=== PATIENT | female | born 1950 | race African-American/Black ===

== ENCOUNTER → 2021-08-16 08:59 | Outpatient (BNVA) | payer MEDICARE, OTHER, SELFPAY | PROVIDERS: PCP Internal Medicine; Visit Provider Nurse Practitioner Family | DX: G43.109 Migraine with aura, not intractable, without status migrainosus (principal); M54.2 Cervicalgia | CPT/HCPCS: 99212 ==

== ENCOUNTER → 2021-11-17 08:57 | Outpatient (BNVA) | payer MEDICARE, OTHER, SELFPAY | PROVIDERS: PCP Internal Medicine; Visit Provider Psychiatry & Neurology Neurology | DX: G43.109 Migraine with aura, not intractable, without status migrainosus (principal); M54.2 Cervicalgia | CPT/HCPCS: 99212 ==

== ENCOUNTER → 2022-02-04 09:07 | Outpatient (BNVA) | payer MEDICARE, OTHER, SELFPAY | PROVIDERS: PCP Internal Medicine; Visit Provider Nurse Practitioner Family | DX: G43.109 Migraine with aura, not intractable, without status migrainosus (principal); M54.2 Cervicalgia | CPT/HCPCS: 99212 ==

== ENCOUNTER → 2022-05-16 08:52 | Outpatient (BNVA) | payer MEDICARE, OTHER, SELFPAY | PROVIDERS: PCP Internal Medicine; Visit Provider Nurse Practitioner Family | DX: G43.109 Migraine with aura, not intractable, without status migrainosus (principal); M54.2 Cervicalgia | CPT/HCPCS: 99212 ==

== ENCOUNTER 2023-02-28 09:02 | Outpatient (AMB) | payer MEDICARE, OTHER, SELFPAY ==
--- NOTE | 2023-02-28 09:15 | A.OFFVIS_ITS ---
Intake Vital Signs 02/28/23 09:21 Weight 172 lb 4 oz BP 122/82 Blood Pressure Location Lt brachial Position Sitting Pulse 78 Pulse Source Pulse Oximeter Pulse Oximetry (%) 98 Oxygen Delivery Method Room Air Intake Visit Reasons: follow up ROLON - LVM Intake Note: F/U Headaches,wakes up in AM with dull pain in the back of head, but nothing bad. Sql Ssrs Ssis Developer Required: No Allergies acetaminophen [From Percocet] Allergy (Mild, Verified 02/28/23 09:17) Rash amoxicillin [From Augmentin] Allergy (Mild, Verified 02/28/23 09:17) Rash clavulanic acid [From Augmentin] Allergy (Mild, Verified 02/28/23 09:17) Rash oxycodone [From Percocet] Allergy (Mild, Verified 02/28/23 09:17) Rash Medication List - Last Reconciled 02/28/23 by PATEL Stone amitriptyline 10 mg PO BEDTIME 90 days atorvastatin 10 mg PO DAILY carvedilol 25 mg PO BID [id number]-tenof alafen [phone] mg (Genvoya) 1 tab PO DAILY magnesium oxide 400 mg PO BEDTIME 90 days omeprazole 20 mg PO DAILY ramipril mg PO DAILY riboflavin (vitamin B2) (Vitamin B-2) 200 mg (2 x 100 mg) PO BID 90 days triamterene-hydrochlorothiazid 37.5-25 mg 1 cap PO DAILY HPI HPI Comments History of Present Illness Details 72-yr-old female presents for f/u visit. Pt denies any significant interval medical changes. Pt reports her headaches are much better. Rarely has a bothersome headache where hse needs to take Advil. Her neck is rarely bothersome. Doing PT exercises at home. She has stopped Mag and B2- and feels ok off of them. Pt is compliant w/ Amitriptyline- w/o adverse effect. She does wonder if there are any specific foods to prevent demnetia. ? States she may occassionally forget what she was just thinking or was about to do. Notes this has always happened from time to time- just now that she is older it can make her worry about her risk for dementia. [facility], [facility] Medical History Cardiomyopathy HLD (hyperlipidemia) HTN (hypertension) Neuropathy Surgical History H/O shoulder surgery H/O: hysterectomy History of carpal tunnel release History of cataract surgery Hx of hernia repair Hx of knee surgery Family History Sister Breast cancer Maternal Aunt Breast cancer Social History Alcohol intake: never Patient Tobacco Use Status: Never used Tobacco Review of Systems Const All systems reviewed & are unremarkable except as noted in HPI and below Physical Exam Vital Signs: Last Vital Signs Pulse 78 02/28/23 09:21 BP 122/82 02/28/23 09:21 Pulse Ox 98 02/28/23 09:21 Oxygen Delivery Method Room Air 02/28/23 09:21 Const General: cooperative and no acute distress Orientation/consciousness: patient oriented x3 HEENT Head: Yes normocephalic Resp Effort & Inspection: normal respiratory effort and able to speak in complete sentences Neuro General: patient oriented x3, gait normal and CN's II-XI intact bilaterally Cognition (Neuro): normal cognition Motor exam (neuro): 5/5 motor strength present throughout Psych Appearance: grossly normal Mental Status: mental status grossly normal Speech and movement: Normal speech and movement present Affect: normal affect Attitude: cooperative Thought process: Normal thought process present Thought content: Normal thought content present Insight: Good insight present (Psych) Judgement: Good judgement present (Psych) Assessment & Plan Assessment & Plan (1) Migraine with aura: Code(s): G43.109 - Migraine with aura, not intractable, without status migrainosus (2) Cervicalgia: Code(s): M54.2 - Cervicalgia Plan For migraine w/ aura prevention: Continue Amitriptyline 10mg qhs. May hold Riboflavin 200mg bid- resume if headaches worsen May hold Magnesium 400mg qhs- resume if headaches worsen Previous trials- Topiramate- failed. ? For acute migraine w/ aura tx: Advil as needed. Contraindications- gepants d/t antiviral tx, triptans d/t h/o cardiomyopathy, HTN, HLD. Lasmiditan- previously denied by insurance. ? For cervicalgia: Resume Mag if neck pain worsens. Continue PT exercises For cognition: Pt advised there is no specific diet to prevent dementia- however encouraged her to eat a healthy well-rounded diet w/ lots of fruits and vegetables 9especially colorful varieties). Encouraged pt to continue to engage in regular social and cognitively stimulating activities, as well as regular physical activity. f/u in 6 months or sooner prn Coding Level of Care Code Est Pt Level 4 (57309) Diagnoses Migraine with aura G43.109 Cervicalgia M54.2
[2023-02-28 09:21] VITALS: BP 122/82; PULSE 78; O2SAT 98
== END 2023-02-28 09:43 | disposition home or self-care (01) ==
PROVIDERS: Visit Provider Nurse Practitioner Family
DX: G43.109 Migraine with aura, not intractable, without status migrainosus (principal); M54.2 Cervicalgia
CPT/HCPCS: 99214

== ENCOUNTER → 2023-02-28 09:02 | Outpatient (BNVA) | payer MEDICARE, OTHER, SELFPAY | PROVIDERS: Visit Provider Nurse Practitioner Family | DX: G43.109 Migraine with aura, not intractable, without status migrainosus (principal); M54.2 Cervicalgia | CPT/HCPCS: 99212 ==

== ENCOUNTER 2023-11-17 08:57 | Outpatient (AMB) | payer MEDICARE, OTHER, SELFPAY ==
--- NOTE | 2023-11-17 09:00 | A.OFFVIS_ITS ---
Vital Signs 11/17/23 09:06 Weight 170 lb 6 oz BP 144/82 H Blood Pressure Location Rt brachial Position Sitting Pulse 82 Pulse Source Pulse Oximeter Pulse Oximetry (%) 99 Intake Visit Reasons: 6m follow up ROLON-confirmed Intake Note: Patient presents for 6 month follow up. patient had one episode of headache with aura but went away quick.hasn't had a migraine in a long time Allergies acetaminophen [From Percocet] Allergy (Mild, Verified 11/17/23 09:06) Rash amoxicillin [From Augmentin] Allergy (Mild, Verified 11/17/23 09:06) Rash clavulanic acid [From Augmentin] Allergy (Mild, Verified 11/17/23 09:06) Rash oxycodone [From Percocet] Allergy (Mild, Verified 11/17/23 09:06) Rash Medication List - Last Reconciled 11/17/23 by PATEL Stone amitriptyline 10 mg PO BEDTIME 90 days atorvastatin 10 mg PO DAILY carvedilol 25 mg PO BID [id number] alafen [phone] mg (Genvoya) 1 tab PO DAILY magnesium oxide 400 mg PO BEDTIME 90 days meloxicam 7.5 mg PO DAILY omeprazole 20 mg PO DAILY ramipril mg PO DAILY riboflavin (vitamin B2) (Vitamin B-2) 200 mg (2 x 100 mg) PO BID 90 days triamterene-hydrochlorothiazid 37.5-25 mg 1 cap PO DAILY HPI Comments Details: 73-yr-old female presents for f/u visit. Pt denies any significant interval medical changes. Pt reports she had a brief 10 minute dull headache and visual aura about 2 weeks ago. This was her typical aura. Has not had any since. She thinks maybe this was d/t stress r/t her friend being sick. Neck is tight. Non-radiating neck pain. Denies arm weakness. She ran out of her [employer] and [employer]. She has just started PT again for her knee pain and neck pain- from [facility]. Using Tylenol prn- as she is on Meloxicam. [facility] Medical History Cardiomyopathy HLD (hyperlipidemia) HTN (hypertension) Neuropathy Surgical History H/O shoulder surgery H/O: hysterectomy History of carpal tunnel release History of cataract surgery Hx of hernia repair Hx of knee surgery Family History Sister Breast cancer Maternal Aunt Breast cancer Social History Alcohol intake: never Patient Tobacco Use Status: Never used Tobacco Physical Exam Vital Signs: Last Vital Signs Pulse 82 11/17/23 09:06 BP 144/82 H 11/17/23 09:06 Pulse Ox 99 11/17/23 09:06 Const General: cooperative and no acute distress Orientation/consciousness: patient oriented x3 Resp Effort & Inspection: normal respiratory effort and able to speak in complete sentences Neuro Other: Bilateral posterior cervical tightness. Negative Spurling. General: patient oriented x3 and deep tendon reflexes 2+ bilaterally Cranial nerves: Yes CN's II-XII intact bilaterally Cognition (Neuro): normal cognition Gait exam (Neuro): Normal gait present Motor exam (neuro): 5/5 motor strength present throughout Psych Appearance: grossly normal Mental Status: mental status grossly normal Speech and movement: Normal speech and movement present Affect: normal affect Attitude: cooperative Assessment & Plan Assessment & Plan (1) Migraine with aura: Code(s): G43.109 - Migraine with aura, not intractable, without status migrainosus Category: Medical (2) Cervicalgia: Code(s): M54.2 - Cervicalgia Category: Medical Plan For migraine w/ aura prevention: Continue Amitriptyline 10mg qhs. Resume Riboflavin 200mg bid. Resume Magnesium 400mg qhs.n Previous trials- Topiramate- failed. ? For acute migraine w/ aura tx: Tylenol as needed. Contraindications- gepants d/t antiviral tx, triptans d/t h/o cardiomyopathy, HTN, HLD. Lasmiditan- previously denied by insurance. ? For cervicalgia: Resume Mag Ox 400mg qhs. Concur w/ PT. ? For cognition: Continue to engage in regular social and cognitively stimulating activities, as well as regular physical activity. ? f/u in 12 months or sooner prn Medications: Refilled riboflavin (vitamin B2) (Vitamin B-2) 200 mg (2 x 100 mg) PO BID 90 days 360 tabs 3RF magnesium oxide may hold for loose stools 400 mg PO BEDTIME 90 days 90 tabs 3RF amitriptyline 10 mg PO BEDTIME 90 days 90 tabs 3RF Coding Level of Care Code Est Pt Level 4 (62898) Diagnoses Migraine with aura G43.109 Cervicalgia M54.2
[2023-11-17 09:06] VITALS: BP 144/82; PULSE 82; O2SAT 99
== END 2023-11-17 09:36 | disposition home or self-care (01) ==
PROVIDERS: PCP Internal Medicine; Visit Provider Nurse Practitioner Family
DX: G43.109 Migraine with aura, not intractable, without status migrainosus (principal); M54.2 Cervicalgia
CPT/HCPCS: 99214

== ENCOUNTER → 2023-11-17 08:57 | Outpatient (BNVA) | payer MEDICARE, OTHER, SELFPAY | PROVIDERS: PCP Internal Medicine; Visit Provider Nurse Practitioner Family | DX: G43.109 Migraine with aura, not intractable, without status migrainosus (principal); M54.2 Cervicalgia; Z79.899 Other long term (current) drug therapy | CPT/HCPCS: 99212 ==

== ENCOUNTER 2025-03-24 08:33 | Outpatient (AMB) | payer MEDICARE, OTHER, SELFPAY ==
--- NOTE | 2025-03-24 08:34 | A.OFFVIS_ITS ---
Vital Signs 03/24/25 08:58 Weight 172 lb BP 140/80 H Blood Pressure Location Rt brachial Position Sitting Pulse 62 Pulse Source Pulse Oximeter Pulse Oximetry (%) 96 Oxygen Delivery Method Room Air Intake Visit Reasons: Follow up Civil Litigation Attorney Required: No Accompanied by: Self / Same As Patient Allergies acetaminophen (From Percocet) Allergy (Mild, Verified 03/24/25 08:37) Rash amoxicillin (From Augmentin) Allergy (Mild, Verified 03/24/25 08:37) Rash clavulanic acid (From Augmentin) Allergy (Mild, Verified 03/24/25 08:37) Rash oxycodone (From Percocet) Allergy (Mild, Verified 03/24/25 08:37) Rash Medication List - Last Reconciled 03/24/25 by PATEL Stone amitriptyline 12.5 mg (1/2 x 25 mg) PO BEDTIME 90 days amitriptyline 10 mg PO BEDTIME 90 days Held on 09/15/24. Instructions: Supply shortage atorvastatin 10 mg PO DAILY carvedilol 25 mg PO BID [id number]-huy-bugps-tenof alafen [phone] mg (Genvoya) 1 tab PO DAILY magnesium oxide 400 mg PO BEDTIME 90 days meloxicam 7.5 mg PO DAILY omeprazole 20 mg PO DAILY ramipril mg PO DAILY riboflavin (vitamin B2) (Vitamin B-2) 200 mg (2 x 100 mg) PO BID 90 days triamterene-hydrochlorothiazid 37.5-25 mg 1 cap PO DAILY HPI Comments Details: 74-yr-old female presents for f/u visit of migraine with aura and cervicalgia. The patient denies any significant medical changes in the interval. Pt reports she has an occasional dull headache a/w visual aura. Headache is characterized by bilateral eye discomfort, with the eyes feeling puffy but not actually swollen. It is accompanied by occipital dull pain, associated with visual aura, photophobia, osmophobia, and mild activity intolerance. Her visual aura starts as everything looks bright, and then has squiggly lines x's up to 30 minutes. She reports she is up-to-date with her eye exams, and has 1 scheduled in the near future. Reports her neck is feeling better since doing PT. She has not resumed B2 or Mag, but is compliant with amitriptyline. Using Tylenol prn- as she is on Meloxicam. [facility] Medical History Cardiomyopathy HLD (hyperlipidemia) HTN (hypertension) Neuropathy Surgical History History of cataract surgery History of carpal tunnel release H/O: hysterectomy Hx of hernia repair H/O shoulder surgery Hx of knee surgery Family History Sister Breast cancer Maternal Aunt Breast cancer Social History Alcohol intake: never Patient Tobacco Use Status: Never used Tobacco Physical Exam Vital Signs: Last Vital Signs Pulse 62 03/24/25 08:58 BP 140/80 H 03/24/25 08:58 Pulse Ox 96 03/24/25 08:58 Oxygen Delivery Method Room Air 03/24/25 08:58 Const General: cooperative and no acute distress Orientation/consciousness: patient oriented x3 Resp Effort & Inspection: normal respiratory effort and able to speak in complete sentences Neuro Other: bilateral posterior cervical muscle tightness w/o tenderness General: patient oriented x3 Cranial nerves: Yes CN's II-XII intact bilaterally Cognition (Neuro): normal cognition Gait exam (Neuro): Normal gait present Motor exam (neuro): 5/5 motor strength present throughout Psych Appearance: grossly normal Mental Status: mental status grossly normal Speech and movement: Normal speech and movement present Affect: normal affect Attitude: cooperative Assessment & Plan Assessment & Plan (1) Migraine with aura: Code(s): G43.109 - Migraine with aura, not intractable, without status migrainosus Category: Medical Qualifiers: Status migrainosus presence: without status migrainosus Intractability: not intractable Qualified Code(s): G43.109 - Migraine with aura, not intractable, without status migrainosus (2) Cervicalgia: Code(s): M54.2 - Cervicalgia Category: Medical Plan For migraine w/ aura prevention: Continue Amitriptyline 12.5 mg qhs. Resume Riboflavin 200mg bid. Resume Magnesium 400mg qhs.n Previous trials- Topiramate- failed. ? For acute migraine w/ aura tx: Tylenol as needed. Contraindications- gepants d/t antiviral tx, triptans d/t h/o cardiomyopathy, HTN, HLD. Lasmiditan- previously denied by insurance. ? For cervicalgia: Resume Mag Ox 400mg qhs. Concur w/ PT. ? For cognition: Continue to engage in regular social and cognitively stimulating activities, as well as regular physical activity. ? f/u in 6-12 months or sooner prn Medications: Changed From amitriptyline 12.5 mg (1/2 x 25 mg) PO BEDTIME 30 days 15 tabs 1RF To amitriptyline 12.5 mg (1/2 x 25 mg) PO BEDTIME 45 tabs 3RF 90 days Refilled riboflavin (vitamin B2) (Vitamin B-2) 200 mg (2 x 100 mg) PO BID 360 tabs 3RF 90 days magnesium oxide may hold for loose stools 400 mg PO BEDTIME 90 tabs 3RF 90 days Coding Level of Care Code Est Pt Level 4 (25047) Diagnoses Migraine with aura and without status migrainosus, not intractable G43.109 Status migrainosus presence: without status migrainosus Intractability: not intractable Cervicalgia M54.2
[2025-03-24 08:58] VITALS: BP 140/80; PULSE 62; O2SAT 96
--- OUTSIDE RECORDS SUMMARY | 2025-03-24 09:42 | XMS_ITS | Clinical Summary ---
Author Organization [facility] Address [address] [place] [address] Phone Care Team Providers Care Key Punch Operator Name Role Phone Wilber Del Valle MD Primary Care Provider [phone] Allergies Active Allergy Reactions Criticality Noted Date Comments Amoxicillin-Pot Clavulanate Rash 06/10/20 24 Oxycodone-Acetaminophen Rash 06/10/2024 Medications carvediloL (COREG) 25 mg tablet Take by mouth 2 (two) times a day with meals. Active ramipriL (ALTACE) 10 mg capsule Take 1 capsule (10 mg total) by mouth 1 (one) time each day. Active triamterene-hydr oCHLOROthiazide (MAXZIDE-25) 37.5-25 mg per tablet Take 1 tablet by mouth 1 (one) time each day. Active atorvastatin (LIPITOR) 10 mg tablet Take 1 tablet (10 mg total) by mouth at bedtime. Active elvitegravir-cob icistat-emtricit abine-tenofovir alafenamide (GENVOYA) [phone] mg per tablet Take 1 tablet by mouth 1 (one) time each day. Take with food. Active Surgical History Surgery Date Site/Laterality Comments US RIGHT BREAST BIOSPY 1 LES ION WITH CORE ROTATIONAL DEVICE 07/10/2014 - 07/09/2015 Right Family History Medical History Relation Name Comments Breast cancer Mother's Sister Breast cancer Sister Relation Name Status Comments Mother's Sister Alive Sister Social History Tobacco Use Types Packs/Day Years Used Date Smoking Tobacco: Never Assessed Comments No Sex and Gender Information Value Date Recorded Sex Assigned at Not on file Legal Sex Female 7:39 PM EST Gender Identity Not on file Sexual Orientation Not on file Obstetrics History Para Term AB IAB SAB Ectopic Multiple Livin g Live Births 1 Last Filed Vital Signs Vital Sign Reading Time Taken Comments Blood Pressure 116/68 06/10/2024 4:31 PM EST Pulse 86 06/10/2024 4:31 PM EST Temperature 36.5 C (97.7 F) 06/10/2024 4:31 PM EST Respiratory Rate - - Oxygen Saturation 98% 06/10/2024 4:31 PM EST Inhaled Oxygen Concentration - - Weight 78 kg (172 lb) 05/21/2024 9:22 AM EST Height 165.1 cm (5' 5 ) 05/21/2024 9:22 AM EST Body Mass Index 28.62 05/21/2024 9:22 AM EST Plan of Treatment Upcoming Encounters Date Type Department Care Team (Late st Contact Info) Description 05/23/2025 9:00 AM EST [facility]ointment [facility] [address] [address] Health Maintenance Due Date Last Done Comments DTaP,Tdap,and Td Vaccines (1 - Tdap) 1969 Zoster Vaccines (2 of 3) 06/21/2017 04/26/2017 Cholesterol Screening (Lipid Panel) 06/11/2022 Falls Risk Assessment 06/11/2022 Hepatitis C Screening 06/11/2022 Medicare Annual Wellness Visit 06/11/2022 Social Influencers of Health Screening 06/11/2022 Hypertension/CHF/CAD Annual BMP Blood Test 05/21/2024 Depression Screening 07/10/2024 COVID-19 Vaccine ( season) 2025 06/09/2022, 08/29/2020, 08/08/2020 Influenza Vaccine (#1) 2025 4, 05/18/2023, 04/11/2016 RSV Immunization Adult Patients (1 - 1-dose 75+ series) 2025 Breast Cancer Screening 05/21/2026 05/21/20 24, 05/17/2023, 05/09/2022, Additional history exists Osteoporosis Screening (Bone Density Screening) 04/03/2028 04/03/2018 Colorectal Cancer Screening: Colonoscopy 10/04/2034 10/04/2024 Pneumococcal Vaccine: 50+ Years Completed 05/09/2023, 07/11/2016 HIB Vaccines Aged Out No longer eligi ble based on patient's age to complete this topic HPV Vaccines Aged Out No longer eligi ble based on patient's age to complete this topic Hepatitis A Vaccines Aged Out No long er eligible based on patient's age to complete this topic Hepatitis B Vaccines Aged Out No long er eligible based on patient's age to complete this topic IPV Vaccines Aged Out No longer eligi ble based on patient's age to complete this topic MMR Vaccines Aged Out No longer eligi ble based on patient's age to complete this topic Meningococcal ACWY Vaccine Aged Out N o longer eligible based on patient's age to complete this topic Meningococcal B Vaccine Aged Out No l onger eligible based on patient's age to complete this topic RSV Immunization Patients Under 20 months Aged Out No longer eligible based on patient's age to complete this topic Varicella Vaccines Aged Out No longer eligible based on patient's age to complete this topic Procedures Procedure Name Priority Date/Time Associated Diagnosis Comments EXTERNAL COLONOSCOPY REPORT Routine 10/04/2024 8:21 AM EDT MG MAMMO DIGITAL SCREENING W ELMER BILAT Routine 05/21/2024 9:44 AM EST Visit for screening mammogram ANNI DEXA AXIAL SKELETON Routine 04/03/2018 11:05 AM EDT Other specified disorders of bone density and structure, unspecified site from Last 3 Months or Most Recently Relevant to Health Maintenance Results * External Colonoscopy Report (10/04/2024 8:21 AM EDT) Anatomical Region Laterality Modality Endoscopy us Historical Provider GI~PROCEDURE ORDERABLES F inal Result * MG Mammo Digital Screening w Elmer bilat (05/21/2024 9:44 AM EST) Anatomical Region Laterality Modality Breast Bilateral Mammography 05/21/2024 10:3 0 AM EST Impressions 05/21/2024 10:34 AM EST No mammographic evidence of malignancy. A negative mammogram in the presence of a clinically suspicious palpable abnormality does not preclude the possibility of malignancy or alter the indications for biopsy. PQRI CPT II 3342F Code 03741, 23268 PQRI 225 CPT II 7025F TISSUE DENSITY: There are scattered areas of fibroglandular density. (BI-RADS category B) IMPRESSION: Benign. BI-RADS CATEGORY: 2 - BENIGN RECOMMENDATION: Screening bilateral mammogram is recommended in 1 year. Mammo Location: [facility], [facility], [address] [place] [id number] -------- FINAL REPORT -------- Dictated By: Martin Barker Dictated Date: 05/21/2024 10:30 ET Assigned Physician: Martin Barker Reviewed and Electronically Signed By: Martin Barker Signed Date: 05/21/2024 10:34 ET Workstation ID: [id number] Transcribed By: Self Edit Transcribed Date: 05/21/2024 10:30 ET Narrative 05/21/2024 10:34 AM EST CLINICAL: The patient is a 73 years Female presenting for routine screening mammography. The patient has undergone previous bilateral breast biopsies, pathology benign. The patient has a family history of breast cancer involving her sister at age 30. COMPARISON: Multiple prior studies most recently 05/17/2023 and most remotely 10/05/2016. TECHNIQUE: Full-field digital mammography of the breasts bilaterally consisting of tomosynthesis in MLO and CC projection is performed in the [employer] 2000-D unit. Computer aided detection utilizing the iCAD system was utilized. FINDINGS: The breasts are again seen to be composed of a combination of fatty and fibroglandular elements, as also seen on prior studies. A tissue marker is again seen anteriorly in the right breast. Extensive vascular calcifications are present. There is no suspicious cluster of microcalcifications, mass, or area of architectural distortion. There is no skin thickening or nipple retraction. Procedure Note Martin Barker MD - 05/21/2024 CLINICAL: The patient is a 73 years Female presenting for routinescreening mammography. The patient has undergone previous bilateralbreast biopsies, pathology benign. The patient has a family history ofbreast cancer involving her sister at age 30. COMPARISON: Multiple prior studies most recently 05/17/2023 and mostremotely 10/05/2016. TECHNIQUE: Full-field digital mammography of the breasts bilaterallyconsisting of tomosynthesis in MLO and CC projection is performed in the[employer] 2000-D unit. Computer aided detection utilizing the Amartusystem was utilized. FINDINGS: The breasts are again seen to be composed of a combination offatty and fibroglandular elements, as also seen on prior studies. Atissue marker is again seen anteriorly in the right breast. Extensivevascular calcifications are present. There is no suspicious cluster ofmicrocalcifications, mass, or area of architectural distortion. There isno skin thickening or nipple retraction. IMPRESSION: No mammographic evidence of malignancy. A negative mammogram in the presence of a clinically suspicious palpableabnormality does not preclude the possibility of malignancy or alter theindications for biopsy. PQRI CPT II 3342F Code 73144, 70575 PQRI 225 CPT II 7025F TISSUE DENSITY: There are scattered areas of fibroglandular density.(BI-RADS category B) IMPRESSION: Benign. BI-RADS CATEGORY: 2 - BENIGN RECOMMENDATION: Screening bilateral mammogram is recommended in 1 year. Mammo Location: [facility], [facility], [address] [place] [id number] -------- FINAL REPORT -------- Dictated By: Martin Barker Dictated Date: 05/21/2024 10:30 ET Assigned Physician: Martin Barker Reviewed and Electronically Signed By: Martin Barker Signed Date: 05/21/2024 10:34 ET Workstation ID: [id number] Transcribed By: Self Edit Transcribed Date: 05/21/2024 10:30 ET Wilber Del Valle MD IMBenita BI PROCEDURES Final Result * ANNI DEXA AXIAL SKELETON (04/03/2018 11:05 AM EDT) Anatomical Region Laterality Modality Mammography 04/03/2018 8:57 AM EDT Narrative 04/03/2018 11:05 AM EDT [facility] Diagnostic Imaging Department [address] [place] [address] Patient: NORMA CASTILLO /Age/Sex: 1950 67 - F Unit#: [id number] Location/Status: SPDIMAM/REG CLI Mnemonic/Ordering Site: MAMDEXAAX/SPMAM Ordering Physician: DAI KATZ MD Nani Dexa Axial Skeleton - 04/03/18941 HISTORY: The patient is a 67-year-old postmenopausal female with clinical concern for metabolic bone disease. FINDINGS: Dual energy x-ray absorptiometry of the lumbar spine and femurs is performed. The mean bone mineral density at L1-L4 is 1.026 gm/cm2 which is 87% of that of young normals and 92% of that of age matched controls. This yields a T-score of -1.3 and a Z-score of -0.8 which is diagnostic of osteopenia. The mean bone mineral density of the femurs bilaterally is 1.003 gm/cm2 which is 100% of that of young normals and 100% of that of age matched controls. This yields a T-score of 0.0 and a Z-score of 0.0 and there is therefore no evidence of osteoporosis or osteopenia here. IMPRESSION: 1. Osteopenia. There has been a decrease of 1.2% in bone mineral density in the lumbar spine since the prior examination of 11/23/2010. There has been an increase of 0.5% in bone mineral density in the right femur and an increase of 0.7% in bone mineral density in the left femur. 2. FRAX analysis yields a 10-year probability of major osteoporotic fracture of 3.5% and a 10-year probability of hip fracture of 0.2%. Code 06453 Dictating Physician: MARTIN BARKER MD Electronically Signed by: MARTIN BARKER MD Dic Date/Time: 04/03/18 1104 Sign date/Time: 04/03/18 1105 Procedure Note Martin Barker MD - 06/28/2022 [facility] Diagnostic Imaging Department [address] [place] [id number] Patient: NORMA CASTILLO /Age/Sex: 1950 - Unit#: [id number] [facility]onic/Ordering Site: [facility] Ordering Physician: DAI KATZ MD Anni Dexa Axial Skeleton - 04/03/18941 HISTORY: The patient is a 67-year-old postmenopausal female withclinical concern for metabolic bone disease. FINDINGS: Dual energy x-ray absorptiometry of the lumbar spine and femursis performed. The mean bone mineral density at L1-L4 is 1.026 gm/cm2 which is87% of that of young normals and 92% of that of age matched controls. Thisyields a T-score of -1.3 and a Z-score of -0.8 which is diagnostic of osteopenia. The mean bone mineral density of the femurs bilaterally is 1.003 gm/uu3duajh is 100% of that of young normals and 100% of that of age matched controls.This yields a T-score of 0.0 and a Z-score of 0.0 and there is therefore noevidence of osteoporosis or osteopenia here. IMPRESSION: 1. Osteopenia. There has been a decrease of 1.2% in bone mineral densityin the lumbar spine since the prior examination of 11/23/2010. There has beenan increase of 0.5% in bone mineral density in the right femur and anincrease of 0.7% in bone mineral density in the left femur. 2. FRAX analysis yields a 10-year probability of major osteoporoticfracture of 3.5% and a 10-year probability of hip fracture of 0.2%. Code 32053 Dictating Physician: MARTIN BARKER MD Electronically Signed by: MARTIN BARKER MD Dic Date/Time: 04/03/18 1104 Sign date/Time: 04/03/18 1105 Dai Katz MD IMG BI PROCEDURES Final Result from Last 3 Months or Most Recently Relevant to Health Maintenance Insurance MEDICARE [facility] Care Teams Key Punch Operator Relationship Specialty Start Date End Date Wilber Del Valle MD [address] [place] [address] PCP - General Internal Medicine 06/10/24
== END 2025-03-24 09:35 | disposition home or self-care (01) ==
LOC: HO.HSMS 08:34
PROVIDERS: PCP Internal Medicine; Visit Provider Nurse Practitioner Family
DX: G43.109 Migraine with aura, not intractable, without status migrainosus (principal); M54.2 Cervicalgia
CPT/HCPCS: 99214

== ENCOUNTER → 2025-03-24 08:33 | Outpatient (BNVA) | payer MEDICARE, OTHER, SELFPAY | PROVIDERS: PCP Internal Medicine; Visit Provider Nurse Practitioner Family | DX: M54.2 Cervicalgia (principal); G43.109 Migraine with aura, not intractable, without status migrainosus; G31.84 Mild cognitive impairment of uncertain or unknown etiology | CPT/HCPCS: 99212 ==